=== PATIENT | male | born 1970 | race African-American/Black ===

== ENCOUNTER 2018-03-13 14:55 | Inpatient (IN) ==
[2018-03-13] MEDS ORDERED: ONDANSETRON 4 MG/2 ML VIAL IV STA (15:47)
[2018-03-13] MEDS ORDERED: MECLIZINE 25 MG TABLET PO STA (15:47)
[2018-03-13] MEDS ORDERED: hydrALAZINE 20 MG/1 ML VIAL IV STA (15:47)
[2018-03-13 16:23] LABS: Basophils % 0.2 % (0.0-0.8); Eosinophils % 0.6 % (0.00-10.9); Hematocrit 44.1 VOL% (42.0-52.0); Hemoglobin 15.2 GM/DL (14.0-18.0); Immature Granulocytes % 0.2 %; Immature Granulocytes Absolute 0.01 #; Lymphocytes # 2.7 10*3/uL (1.4-4.0); Lymphocytes % 43.1 % (21.2-54.2); Mean Corpuscular HGB Conc 34.5 GM/DL (32-36); Mean Corpuscular Hemoglobin 29 PG (27-34); Mean Corpuscular Volume 84.8 FL (87-102); Mean Platelet Volume 9.9 FL (9.6-12.0); Monocytes # 0.6 10*3/uL (0.11-0.8); Monocytes % 8.7 % (1.7-12.7); Neutrophils % 47.2 % (38.7-73.9); Platelet Count 329 T/CUMM (130-400); Red Cell Distribution Width 13.9 % (9.3-17.3); White Blood Count 6.4 T/CUMM (4-12)
[2018-03-13 16:30] LABS: PT Patient Result 10.7 SECS; Partial Thromboplastin Time 26.9 SECS (0-40)
[2018-03-13] MEDS ORDERED: METOPROLOL TARTRATE 5 MG/5 ML VIAL IV ONE (16:35)
[2018-03-13] MEDS ORDERED: METOPROLOL TARTRATE 5 MG/5 ML VIAL IV STA (16:36)
[2018-03-13 16:44] LABS: Alanine Aminotransferase 31 U/L (16-61); Albumin 3.7 G/DL (3.4-5.0); Alkaline Phosphatase 57 U/L (45-117); Aspartate Amino Transferase 15 U/L (0-37); Blood Urea Nitrogen 17 MG/DL (7-18); Calcium 9.5 MG/DL (8.5-10.1); Glucose 284 MG/DL (74-106); Osmolality,Calculated 279.2 MOS/KG (273-304); Potassium 3.7 MMOL/L (3.5-5.1); Sodium 134 MMOL/L (136-145); Total Protein 8.5 G/DL (6.4-8.3); Troponin I < 0.015 NG/ML (0.00-0.045)
[2018-03-13] MEDS ORDERED: ZALEPLON 5 MG CAPSULE PO PRN (17:18)
[2018-03-13] MEDS ORDERED: ONDANSETRON 4 MG/2 ML VIAL IV PRN (17:18)
[2018-03-13] MEDS ORDERED: DEXTROSE 50% 25 GM/50 ML VIAL IV PRN (17:18)
[2018-03-13] MEDS ORDERED: ACETAMINOPHEN 325 MG TABLET PO PRN (17:18)
[2018-03-13] MEDS ORDERED: GLUCAGON 1 MG VIAL IM PRN (17:18)
[2018-03-13] MEDS ORDERED: MECLIZINE 25 MG TABLET PO PRN (17:21)
[2018-03-13] MEDS ORDERED: DIAZEPAM 5 MG TABLET PO PRN (17:21)
[2018-03-13] MEDS: dilTIAZem Drip 125 MG/125 ML PREMIX IV SCH (21:27)
[2018-03-13] MEDS: ENOXAPARIN 40 MG/0.4 ML SYRINGE SUBCUT SCH (21:33)
[2018-03-13] MEDS: INSULIN REGULAR 100 UNIT/ML SUBCUT SCH (22:39)
[2018-03-14] MEDS: dilTIAZem Drip 125 MG/125 ML PREMIX IV SCH (06:01)
[2018-03-14 06:42] LABS: Basophils % 0.2 % (0.0-0.8); Eosinophils % 0.6 % (0.00-10.9); Hematocrit 41.1 VOL% (42.0-52.0); Hemoglobin 13.9 GM/DL (14.0-18.0); Immature Granulocytes % 0.2 %; Immature Granulocytes Absolute 0.01 #; Lymphocytes # 2.1 10*3/uL (1.4-4.0); Lymphocytes % 40.6 % (21.2-54.2); Mean Corpuscular HGB Conc 33.8 GM/DL (32-36); Mean Corpuscular Hemoglobin 29 PG (27-34); Mean Corpuscular Volume 84.2 FL (87-102); Mean Platelet Volume 9.8 FL (9.6-12.0); Monocytes # 0.6 10*3/uL (0.11-0.8); Monocytes % 10.9 % (1.7-12.7); Neutrophils # 2.5 10*3/uL (1.4-7.4); Neutrophils % 47.5 % (38.7-73.9); Platelet Count 301 T/CUMM (130-400); Red Blood Count 4.88 MC/CUMM (3.8-5.5); White Blood Count 5.3 T/CUMM (4-12)
[2018-03-14 07:14] LABS: Albumin 3.2 G/DL (3.4-5.0); Bilirubin,Total 0.6 MG/DL (0.2-1.0); Calcium 9.1 MG/DL (8.5-10.1); Osmolality,Calculated 284.2 MOS/KG (273-304); Risk Ratio 5.37; Thyroid Stimulating Hormone 1.79 uIU/ml (0.358-3.74); Total Protein 7.8 G/DL (6.4-8.3); VLDL CHOLESTEROL 37.4 MG/DL
[2018-03-14] MEDS ORDERED: Liraglutide [Victoza 3-Pak] 1.2 MG SUBCUT SCH (09:00)
[2018-03-14] MEDS: PANTOPRAZOLE 40 MG TABLET PO SCH (09:23)
[2018-03-14] MEDS: hydroCHLOROthiazide 25 MG TABLET PO SCH (09:23)
[2018-03-14] MEDS: LOSARTAN/HCTZ 50-12.5 MG TABLET PO SCH (09:23)
[2018-03-14] MEDS: INSULIN REGULAR 100 UNIT/ML SUBCUT SCH ×4 (09:25→20:39)
[2018-03-14] MEDS: SOTALOL 80 MG TABLET PO SCH ×2 (09:25→20:38)
[2018-03-14] MEDS ORDERED: INSULIN NPH/REGULAR 70/30 100 UNIT/ML SUBCUT SCH (16:30)
[2018-03-14] MEDS: metFORMIN 500 MG TABLET PO SCH (17:16)
[2018-03-14] MEDS: ENOXAPARIN 40 MG/0.4 ML SYRINGE SUBCUT SCH (20:38)
[2018-03-15 04:09] LABS: Basophils % 0.2 % (0.0-0.8); Eosinophils % 0.6 % (0.00-10.9); Hematocrit 40.4 VOL% (42.0-52.0); Hemoglobin 13.3 GM/DL (14.0-18.0); Immature Granulocytes % 0.2 %; Immature Granulocytes Absolute 0.01 #; Lymphocytes # 2.6 10*3/uL (1.4-4.0); Lymphocytes % 42.3 % (21.2-54.2); Mean Corpuscular HGB Conc 32.9 GM/DL (32-36); Mean Corpuscular Hemoglobin 28 PG (27-34); Mean Corpuscular Volume 84.3 FL (87-102); Monocytes # 0.6 10*3/uL (0.11-0.8); Monocytes % 9.6 % (1.7-12.7); Neutrophils # 2.9 10*3/uL (1.4-7.4); Neutrophils % 47.1 % (38.7-73.9); Platelet Count 300 T/CUMM (130-400); Red Blood Count 4.79 MC/CUMM (3.8-5.5); Red Cell Distribution Width 13.5 % (9.3-17.3); White Blood Count 6.2 T/CUMM (4-12)
[2018-03-15 04:35] LABS: Calcium 8.8 MG/DL (8.5-10.1); Osmolality,Calculated 285.8 MOS/KG (273-304); Potassium 3.7 MMOL/L (3.5-5.1)
[2018-03-15] MEDS ORDERED: INSULIN NPH/REGULAR 70/30 100 UNIT/ML SUBCUT SCH ×3 (07:30→08:30)
[2018-03-15] MEDS: hydroCHLOROthiazide 25 MG TABLET PO SCH (09:01)
[2018-03-15] MEDS: metFORMIN 500 MG TABLET PO SCH (09:01)
[2018-03-15] MEDS: LOSARTAN/HCTZ 50-12.5 MG TABLET PO SCH (09:02)
[2018-03-15] MEDS: SOTALOL 80 MG TABLET PO SCH (09:02)
[2018-03-15] MEDS: PANTOPRAZOLE 40 MG TABLET PO SCH (09:02)
[2018-03-15] MEDS: INSULIN REGULAR 100 UNIT/ML SUBCUT SCH ×2 (09:03→12:25)
[2018-03-15 12:06] VITALS: BP 116/82
== END 2018-03-15 13:59 | disposition home or self-care (01) | DRG 310 ==
LOC: N.ED 14:55 → N.EDINP 14:55 → N.TELEN 18:26
PROVIDERS: ADMIT Hospitalist; ATTEND Hospitalist

== ENCOUNTER 2018-11-21 08:10 | Inpatient (IN) ==
[2018-11-21] MEDS ORDERED: DILTIAZEM 50 MG/10 ML VIAL IV STA (08:48)
[2018-11-21 08:57] LABS: Basophils % 0.5 % (0.0-0.8); Eosinophils # 0.1 10*3/uL (0.0-0.87); Eosinophils % 0.7 % (0.00-10.9); Hematocrit 41.5 VOL% (42.0-52.0); Immature Granulocytes % 0.2 %; Immature Granulocytes Absolute 0.02 #; Lymphocytes # 2.5 10*3/uL (1.4-4.0); Lymphocytes % 29.1 % (21.2-54.2); Mean Corpuscular HGB Conc 33.7 GM/DL (32-36); Mean Corpuscular Volume 83.5 FL (87-102); Mean Platelet Volume 9.7 FL (9.6-12.0); Monocytes % 8.9 % (1.7-12.7); Neutrophils % 60.6 % (38.7-73.9); Platelet Count 385 T/CUMM (130-400); Red Blood Count 4.97 MC/CUMM (3.8-5.5); Red Cell Distribution Width 14.4 % (9.3-17.3); White Blood Count 8.7 T/CUMM (4-12)
[2018-11-21] MEDS ORDERED: dilTIAZem Drip 125 MG/125 ML PREMIX IV SCH (09:00)
[2018-11-21 09:08] LABS: PT Patient Result 10.8 SECS
[2018-11-21 09:24] LABS: Albumin 3.5 G/DL (3.4-5.0); Bilirubin,Total 0.7 MG/DL (0.2-1.0); Calcium 9.5 MG/DL (8.5-10.1); Thyroid Stimulating Hormone 2.48 uIU/ml (0.358-3.74); Total Protein 7.9 G/DL (6.4-8.3)
[2018-11-21] MEDS ORDERED: MAGNESIUM SULF RIDER 2 GM in PREMIX 1 EACH IV STA (09:30)
[2018-11-21] MEDS ORDERED: ACETAMINOPHEN 325 MG TABLET PO PRN (10:26)
[2018-11-21] MEDS ORDERED: ONDANSETRON 4 MG/2 ML VIAL IV PRN (10:26)
[2018-11-21] MEDS ORDERED: DEXTROSE 10% 25 GM/250 ML BAG IV PRN (10:42)
[2018-11-21] MEDS ORDERED: GLUCAGON 1 MG VIAL IM PRN (10:42)
[2018-11-21] MEDS ORDERED: ALPRAZolam 0.5 MG TABLET PO PRN (11:09)
[2018-11-21] MEDS ORDERED: ASPIRIN CHEW 81 MG TABLET PO ONE (11:35)
[2018-11-21] MEDS: hydroCHLOROthiazide 25 MG TABLET PO SCH (11:38)
[2018-11-21] MEDS ORDERED: ASPIRIN CHEW 81 MG TABLET PO STA (11:46)
[2018-11-21] MEDS: INSULIN LISPRO 100 UNIT/ML SUBCUT SCH ×3 (12:11→21:37)
[2018-11-21] MEDS: LOSARTAN 50 MG TABLET PO SCH (12:21)
[2018-11-21 12:35] LABS: Apearance,Urine CLEAR (Clear); Bilirubin,Urine Negative (Negative); Blood, Urine Negative (Negative); Glucose,Urine (UA) 150 mg/dL (Negative); Hyaline Casts,Urine 1 /LPF (0-3); Ketones,Urine Negative (Negative); Mucus,Urine Occasional /LPF (Occasional); Nitrite,Urine Negative (Negative); Protein,Urine 30 MG/DL; RBC,Urine 2 /HPF (0-4); Squamous Epithelial Cell,Urine Occasional /HPF (0-10); Urine Color Yellow (Yellow); Urine Specific Gravity 1.023 (1.001-1.035); WBC,Urine 1 /HPF (0-6)
[2018-11-21 12:41] LABS: Barbiturates Screen,Urine Negative (Negative); Benzodiazepines Screen,Urine Negative (Negative); Cannabinoid Screen,Urine Negative (Negative); Opiate Screen,Urine Negative (Negative); Phencyclidine Screen,Urine Negative (Negative)
[2018-11-21] MEDS ORDERED: Semaglutide [Ozempic] 0.25 MG SUBCUT SCH (15:00)
[2018-11-21] MEDS: APIXABAN 5 MG TABLET PO SCH ×2 (15:22→21:18)
[2018-11-21] MEDS: ROSUVASTATIN 20 MG TABLET PO SCH (21:17)
[2018-11-21] MEDS: SOTALOL 80 MG TABLET PO SCH (21:17)
[2018-11-21] MEDS: INSULIN GLARGINE 100 UNIT/ML SUBCUT SCH (21:38)
[2018-11-22 06:01] LABS: Basophils % 0.3 % (0.0-0.8); Eosinophils % 0.6 % (0.00-10.9); Hematocrit 36.4 VOL% (42.0-52.0); Hemoglobin 12.3 GM/DL (14.0-18.0); Immature Granulocytes % 0.4 %; Immature Granulocytes Absolute 0.03 #; Lymphocytes # 2.2 10*3/uL (1.4-4.0); Mean Corpuscular HGB Conc 33.8 GM/DL (32-36); Mean Corpuscular Volume 84.3 FL (87-102); Mean Platelet Volume 9.9 FL (9.6-12.0); Monocytes % 8.7 % (1.7-12.7); Platelet Count 344 T/CUMM (130-400); Red Blood Count 4.32 MC/CUMM (3.8-5.5); Red Cell Distribution Width 14.2 % (9.3-17.3); White Blood Count 6.8 T/CUMM (4-12)
[2018-11-22 06:19] LABS: Calcium 8.8 MG/DL (8.5-10.1); Osmolality,Calculated 288.5 MOS/KG (273-304); Risk Ratio 4.85; VLDL CHOLESTEROL 30.8 MG/DL
[2018-11-22] MEDS: hydroCHLOROthiazide 25 MG TABLET PO SCH (10:00)
[2018-11-22] MEDS: SOTALOL 80 MG TABLET PO SCH ×2 (10:00→21:25)
[2018-11-22] MEDS: LOSARTAN 50 MG TABLET PO SCH (10:00)
[2018-11-22] MEDS: APIXABAN 5 MG TABLET PO SCH ×2 (10:01→21:25)
[2018-11-22] MEDS: PANTOPRAZOLE 40 MG TABLET PO SCH (10:06)
[2018-11-22] MEDS: ASPIRIN EC 81 MG TABLET PO SCH (10:07)
[2018-11-22] MEDS: INSULIN LISPRO 100 UNIT/ML SUBCUT SCH ×4 (10:09→21:25)
[2018-11-22] MEDS ORDERED: ENOXAPARIN 40 MG/0.4 ML SYRINGE SUBCUT SCH (11:00)
[2018-11-22] MEDS: ROSUVASTATIN 20 MG TABLET PO SCH (21:25)
[2018-11-22] MEDS: INSULIN GLARGINE 100 UNIT/ML SUBCUT SCH (21:25)
[2018-11-23] MEDS ORDERED: ALUM/MAG/SIMETH/LIDO VISC 1:1 30 ML BOTTLE PO ONE (04:39)
[2018-11-23] MEDS ORDERED: MORPHINE 4 MG/1 ML VIAL IV PRN (04:39)
[2018-11-23] MEDS ORDERED: ALUMINUM/MAGNES/SIMETH MAX STR 30 ML UDCUP PO PRN (04:39)
[2018-11-23 05:41] LABS: Basophils % 0.3 % (0.0-0.8); Eosinophils # 0.1 10*3/uL (0.0-0.87); Eosinophils % 0.8 % (0.00-10.9); Hematocrit 37.3 VOL% (42.0-52.0); Hemoglobin 12.3 GM/DL (14.0-18.0); Immature Granulocytes % 0.3 %; Immature Granulocytes Absolute 0.02 #; Lymphocytes # 2.7 10*3/uL (1.4-4.0); Lymphocytes % 37.7 % (21.2-54.2); Mean Corpuscular Volume 84.2 FL (87-102); Mean Platelet Volume 9.9 FL (9.6-12.0); Monocytes % 8.7 % (1.7-12.7); Neutrophils % 52.2 % (38.7-73.9); Platelet Count 338 T/CUMM (130-400); Red Blood Count 4.43 MC/CUMM (3.8-5.5); Red Cell Distribution Width 14.1 % (9.3-17.3); White Blood Count 7.1 T/CUMM (4-12)
[2018-11-23 06:13] LABS: Osmolality,Calculated 288.5 MOS/KG (273-304)
[2018-11-23] MEDS: INSULIN LISPRO 100 UNIT/ML SUBCUT SCH ×4 (08:36→21:31)
[2018-11-23] MEDS: PANTOPRAZOLE 40 MG TABLET PO SCH (08:38)
[2018-11-23] MEDS: hydroCHLOROthiazide 25 MG TABLET PO SCH (08:38)
[2018-11-23] MEDS: ASPIRIN EC 81 MG TABLET PO SCH (08:38)
[2018-11-23] MEDS: SOTALOL 80 MG TABLET PO SCH ×2 (08:38→21:30)
[2018-11-23] MEDS: LOSARTAN 50 MG TABLET PO SCH (08:38)
[2018-11-23] MEDS: APIXABAN 5 MG TABLET PO SCH ×2 (08:40→21:30)
[2018-11-23] MEDS: INSULIN GLARGINE 100 UNIT/ML SUBCUT SCH (21:30)
[2018-11-23] MEDS: ROSUVASTATIN 20 MG TABLET PO SCH (21:30)
[2018-11-24 04:52] LABS: Basophils % 0.3 % (0.0-0.8); Eosinophils # 0.1 10*3/uL (0.0-0.87); Eosinophils % 0.7 % (0.00-10.9); Hematocrit 36.6 VOL% (42.0-52.0); Hemoglobin 12.3 GM/DL (14.0-18.0); Immature Granulocytes % 0.1 %; Immature Granulocytes Absolute 0.01 #; Lymphocytes % 39.5 % (21.2-54.2); Mean Corpuscular HGB Conc 33.6 GM/DL (32-36); Mean Corpuscular Volume 83.9 FL (87-102); Mean Platelet Volume 10.5 FL (9.6-12.0); Monocytes % 9.1 % (1.7-12.7); Neutrophils % 50.3 % (38.7-73.9); Platelet Count 344 T/CUMM (130-400); Red Blood Count 4.36 MC/CUMM (3.8-5.5); Red Cell Distribution Width 13.9 % (9.3-17.3); White Blood Count 7.7 T/CUMM (4-12)
[2018-11-24 05:20] LABS: Calcium 8.8 MG/DL (8.5-10.1); Osmolality,Calculated 284.7 MOS/KG (273-304)
[2018-11-24] MEDS: INSULIN LISPRO 100 UNIT/ML SUBCUT SCH ×2 (09:10→12:05)
[2018-11-24] MEDS: PANTOPRAZOLE 40 MG TABLET PO SCH (09:13)
[2018-11-24] MEDS: hydroCHLOROthiazide 25 MG TABLET PO SCH (09:13)
[2018-11-24] MEDS: APIXABAN 5 MG TABLET PO SCH (09:13)
[2018-11-24] MEDS: SOTALOL 80 MG TABLET PO SCH (09:13)
[2018-11-24] MEDS: LOSARTAN 50 MG TABLET PO SCH (09:14)
[2018-11-24] MEDS: ASPIRIN EC 81 MG TABLET PO SCH (09:19)
[2018-11-24 11:31] VITALS: BP 135/84
== END 2018-11-24 13:35 | disposition home or self-care (01) | DRG 310 ==
LOC: N.ED 08:10 → N.EDINP 09:43 → N.TELEN 13:24
PROVIDERS: ADMIT Internal Medicine; ATTEND Internal Medicine Cardiovascular Disease